=== PATIENT | male | born 1980 | race Caucasian/White ===

== ENCOUNTER 2020-08-10 15:50 | Emergency (ER) | payer BC, OTHER ==
[~2020-08-10] VITALS: Ht 180.3 cm; Wt 93.1 kg
[2020-08-10] MEDS ORDERED: IV NORMAL SALINE 1,000ML 1,000 ML IV ONE (16:00)
[2020-08-10] MEDS ORDERED: ONDANSETRON PF 4 MG/2 ML VIAL. IVP ONE (16:00)
[2020-08-10] MEDS ORDERED: KETOROLAC 15 MG/ML VIAL. IVP ONE (16:00)
[2020-08-10 16:24] LABS: BASO # 0.1 x10^3/uL (0.0-0.2); BASO % 1 % (0-3); EOS # 0.4 x10^3/uL (0.0-0.7); EOS % 6 % (0-3); HEMATOCRIT 43.5 % (39.0-53.0); HEMOGLOBIN 14.6 g/dL (13.0-17.5); LYMPH # 2.5 x10^3/uL (1.0-4.8); LYMPH % 36 % (24-48); MEAN CORPUSCULAR HEMOGLOBIN 29 pg (25-35); MEAN CORPUSCULAR HGB CONC 34 g/dL (31-37); MEAN CORPUSCULAR VOLUME 86 fL (79-100); MONO # 0.5 x10^3/uL (0.0-1.1); MONO % 7 % (0-9); NEUT # 3.6 x10^3uL (1.8-7.7); NEUT % 51 % (31-73); PLATELET COUNT 196 x10^3/uL (140-400); RED BLOOD COUNT 5.03 x10^6/uL (4.30-5.70); RED CELL DISTRIBUTION WIDTH 13.1 % (11.5-14.5); WHITE BLOOD COUNT 7.1 x10^3/uL (4.0-11.0)
[2020-08-10 16:39] LABS: CALCIUM 8.5 mg/dL (8.5-10.1); CREATININE 0.9 mg/dL (0.7-1.3); POTASSIUM 3.8 mmol/L (3.5-5.1)
[2020-08-10 16:45] LABS: ALBUMIN 3.6 g/dL (3.4-5.0); ALBUMIN/GLOBULIN RATIO 1.2 (1.0-1.7); TOTAL BILIRUBIN 0.2 mg/dL (0.2-1.0); TOTAL PROTEIN 6.7 g/dL (6.4-8.2)
--- NOTE | 2020-08-10 16:47 | RAD ---
EXAM: Chest, single view. HISTORY: Pain. COMPARISON: None. FINDINGS: A frontal view of the chest is obtained. There is no infiltrate, pleural effusion or pneumo thorax. The heart is normal in size. IMPRESSION: No acute pulmonary finding. Electronically signed by: Lisa Barrera MD (08/10/2020 4:44 PM) [id number]
--- NOTE | 2020-08-10 16:59 | EKG ---
[address] [address] Test Date: 2020-08-10 Test Time: 16:13:26 Pat Name: ALEXANDREA RABAGO Department: Room: Gender: M Bakery Technician: HODAN : 1980 Requested By: MELIA HERNANDEZ Order Number: [id number] Reading MD: Measurements Intervals [place] Rate: 51 P: 0 AK: 128 QRS: -8 QRSD: 94 T: 1 QT: 444 QTc: 411 Interpretive Statements SINUS RHYTHM LEFTWARD AXIS OTHERWISE NORMAL ECG RI6.02 No previous ECG available for comparison
--- NOTE | 2020-08-10 17:02 | PHYS DOC ---
Past History Past Medical History: No Pertinent History (MELIA HERNANDEZ APRN) Alcohol Use: Occasionally (MELIA HERNANDEZ APRN) General Adult EDM: Chief Complaint: ABDOMINAL PAIN HPI: HPI: Patient is a 39-year-old male who presents with right lower abdominal pain that radiates to right flank. Patient states that the pain started about an hour ago. Patient denies nausea, vomiting, diarrhea, fever. Patient denies any recent illness. Patient denies taking anything at home for the pain. Patient denies health history. (MELIA HERNANDEZ APRN) Review of Systems: Review of Systems: Constitutional: Denies fever or chills Eyes: Denies change in visual acuity HENT: Denies nasal congestion or sore throat Respiratory: Denies cough or shortness of breath Cardiovascular: Denies chest pain or edema GI: Reports right-sided lower abdominal pain, denies nausea, vomiting, bloody stools or diarrhea : Denies dysuria Musculoskeletal: Denies back pain or joint pain Integument: Denies rash Neurologic: Denies headache, focal weakness or sensory changes Endocrine: Denies polyuria or polydipsia Lymphatic: Denies swollen glands Psychiatric: Denies depression or anxiety (MELIA HERNANDEZ APRN) Current Medications: Current Meds: Current Medications Medications (Trade) Dose Ordered Sig/Vita Start Time Stop Time Status Last Admin Dose Admin Ketorolac Tromethamine (Toradol 15mg Vial) 15 mg 1X ONCE 08/10/20 16:00 08/10/20 16:32 DC 08/10/20 16:28 15 MG Ondansetron HCl (Zofran) 4 mg 1X ONCE 08/10/20 16:00 08/10/20 16:32 DC 08/10/20 16:26 4 MG Sodium Chloride 1,000 ml @ 1,000 mls/hr 1X ONCE 08/10/20 16:00 08/10/20 16:59 DC 08/10/20 16:00 1,000 MLS/HR (MELIA HERNANDEZ APRN) Allergies: Allergies: Allergies Coded Allergies Type Severity Reaction Last Updated Verified No Known Drug Allergies 08/10/20 No (MELIA HERNANDEZ APRN) Physical Exam: PE: Constitutional: Well developed, well nourished, no acute distress, non-toxic appearance. [] HENT: Normocephalic, atraumatic, bilateral external ears normal, oropharynx moist, no oral exudates, nose normal. [] Eyes: PERRLA, EOMI, conjunctiva normal, no discharge. [] Neck: Normal range of motion, no tenderness, supple, no stridor. [] Cardiovascular:Heart rate regular rhythm, no murmur [] Lungs & Thorax: Bilateral breath sounds clear to auscultation [] Abdomen: Bowel sounds normal, soft, tenderness right lower abdomen Skin: Warm, dry, no erythema, no rash. [] Back: No tenderness, right sided CVA tenderness. [] Extremities: No tenderness, no cyanosis, no clubbing, ROM intact, no edema. [] Neurologic: Alert and oriented X 3, normal motor function, normal sensory function, no focal deficits noted. [] Psychologic: Affect normal, judgement normal, mood normal. [] (MELIA HERNANDEZ APRN) Current Patient Data: Labs: Laboratory Tests Test 08/10/20 16:10 White Blood Count 7.1 x10^3/uL (4.0-11.0) Red Blood Count 5.03 x10^6/uL (4.30-5.70) Hemoglobin 14.6 g/dL (13.0-17.5) Hematocrit 43.5 % (39.0-53.0) Mean Corpuscular Volume 86 fL (79-100) Mean Corpuscular Hemoglobin 29 pg (25-35) Mean Corpuscular Hemoglobin Concent 34 g/dL (31-37) Red Cell Distribution Width 13.1 % (11.5-14.5) Platelet Count 196 x10^3/uL (140-400) Neutrophils (%) (Auto) 51 % (31-73) Lymphocytes (%) (Auto) 36 % (24-48) Monocytes (%) (Auto) 7 % (0-9) Eosinophils (%) (Auto) 6 % (0-3) H Basophils (%) (Auto) 1 % (0-3) Neutrophils # (Auto) 3.6 x10^3uL (1.8-7.7) Lymphocytes # (Auto) 2.5 x10^3/uL (1.0-4.8) Monocytes # (Auto) 0.5 x10^3/uL (0.0-1.1) Eosinophils # (Auto) 0.4 x10^3/uL (0.0-0.7) Basophils # (Auto) 0.1 x10^3/uL (0.0-0.2) Sodium Level 142 mmol/L (136-145) Potassium Level 3.8 mmol/L (3.5-5.1) Chloride Level 108 mmol/L (98-107) H Carbon Dioxide Level 29 mmol/L (21-32) Anion Gap 5 (6-14) L Blood Urea Nitrogen 12 mg/dL (8-26) Creatinine 0.9 mg/dL (0.7-1.3) Estimated GFR (Cockcroft-Gault) 93.0 BUN/Creatinine Ratio 13 (6-20) Glucose Level 140 mg/dL (70-99) H Calcium Level 8.5 mg/dL (8.5-10.1) Total Bilirubin 0.2 mg/dL (0.2-1.0) Aspartate Amino Transferase (AST) 12 U/L (15-37) L Alanine Aminotransferase (ALT) 20 U/L (16-63) Alkaline Phosphatase 49 U/L (46-116) Total Protein 6.7 g/dL (6.4-8.2) Albumin 3.6 g/dL (3.4-5.0) Albumin/Globulin Ratio 1.2 (1.0-1.7) Vital Signs: Vital Signs Date Time Temp Pulse Resp B/P (MAP) Pulse Ox O2 Delivery O2 Flow Rate FiO2 08/10/20 15:57 98.6 57 14 133/74 (93) 99 Room Air (MELIA HERNANDEZ APRN) EKG: EKG: [] (MELIA HERNANDEZ APRN) Radiology/Procedures: Radiology/Procedures: []XAM: Chest, single view. HISTORY: Pain. COMPARISON: None. FINDINGS: A frontal view of the chest is obtained. There is no infiltrate, pleural effusion or pneumothorax. The heart is normal in size. IMPRESSION: No acute pulmonary finding. Electronically signed by: Lisa Barrera MD (08/10/2020 4:44 PM) [email or web address] EXAM: CT Abdomen and Pelvis without IV contrast CLINICAL HISTORY: Reason: abdominal/flank pain / Spl. Instructions: / History: . COMPARISON: none TECHNIQUE: Helical CT of the abdomen and pelvis without intravenous contrast. Axial, coronal and sagittal reformatted images were generated. PQRS compliance statement - One or more of the following individualized dose reduction techniques were utilized for this study: 1. Automated exposure control 2. Adjustment of the mA and/or kV according to patient size 3. Use of iterative reconstruction technique FINDINGS: Lack of intravenous contrast limits evaluation of solid organs, vasculature, and lymph nodes. Lower chest: Lung bases are clear. Abdomen and Pelvis: No focal liver lesion. Gallbladder is normal. No biliary dilatation. Pancreas is unremarkable. Spleen is normal in appearance. Adrenal glands are unremarkable. 4 mm calculus is seen within the proximal right ureter resulting in moderate right hydronephrosis and proximal right hydroureter. No left renal calculus. No left hydronephrosis or hydroureter. Bladder is partially distended, grossly unremarkable. Moderate colonic stool content is seen. Appendix is normal. No small or large bowel dilatation. No bowel obstruction. Small fat-containing periumbilical hernia is seen. No abdominal or pelvic ascites. No abdominal or pelvic lymphadenopathy. Bones: Degenerative changes of the spine are seen. No aggressive osseous lesion is seen. IMPRESSION: 4 mm calculus within the proximal right ureter results in moderate right hydr onephrosis and proximal right hydroureter. Electronically signed by: Javier Russ MD (08/10/2020 5:08 PM) [place] (MELIA HERNANDEZ APRN) Heart Score: Risk Factors: Risk Factors: DM, Current or recent (<one month) smoker, HTN, HLP, family history of CAD, obesity. Risk Scores: Score 0 - 3: 2.5% MACE over next 6 weeks - Discharge Home Score 4 - 6: 20.3% MACE over next 6 weeks - Admit for Clinical Observation Score 7 - 10: 72.7% MACE over next 6 weeks - Early Invasive Strategies (MELIA HERNANDEZ APRN) Course & Med Decision Making: Course & Med Decision Making Pertinent Labs and Imaging studies reviewed. (See chart for details) Patient is a 39-year-old male who presents with right lower abdominal pain that radiates to right flank. Patient states that the pain started about an hour ago. Patient denies nausea, vomiting, diarrhea, fever. Patient denies any recent illness. Patient denies taking anything at home for the pain. Patient denies health history. CT abdomen and pelvis ordered, UA rule out kidney stone. Toradol given for pain and Zofran for nausea. Chest x-ray shows no acute pulmonary finding.CT shows 4 mm calculus within the proximal right ureter results in moderate right hydronephrosis and proximal right hydroureter. Flomax ordered. Patient pain 5/10. Hydrocodone given. Patient 50 BPM, creatine with in normal limits, negative white count, pain controlled, no fever in ED. UA positive for large blood. Sending patient home with strainer, hydrocodone, flomax. Ibuprofen and tylenol. Follow up with PCP. 1.Nephrolitiasis 2. appendicitis 3. cholecystitis (MELIA HERNANDEZ APRN) Course & Med Decision Making Did not see patient, however discussed patient with OFFICE ASSISTANT RECEPTIONIST and agreed with her plan and disposition. (SARAY BARBA MD) Dragon Disclaimer: Dragon Disclaimer: This electronic medical record was generated, in whole or in part, using a voice recognition dictation system. (MELIA HERNANDEZ APRN) Departure Departure: Impression: Primary Impression: Kidney stone Disposition: 01 DC HOME SELF CARE/HOMELESS Condition: IMPROVED Referrals: STEPHEN RODRIGUEZ MD (PCP) Patient Instructions: Diet for Kidney Stones Additional Instructions: For lower right-sided abdominal pain and flank pain. Your CT of your abdomen showed 4 mm calculus within the proximal right ureter. You will need to increase your fluids at home. I will prescribe you Flomax to take at home along with pain medication. Please return to the ED with worsening symptoms or concerns. EMERGENCY DEPARTMENT GENERAL DISCHARGE INSTRUCTIONS Thank you for coming to [facility] (ED) today and trusting us with you care. We trust that you had a positivie experience in our Emergency Department. If you wish to speak to the department management, you may call the director at [phone]. YOUR FOLLOW UP INSTRUCTIONS ARE FOLLOWS: 1. Do you have a private Doctor? If you do not have a private doctor, please ask for a resource list of physicians or clinics that may be able to assist you with follow up care. 2. The Emergency Physician has interpreted your x-rays. The X-Ray specialist will also review them. If there is a change in the findings, you will be notified in 48 hours when at all possible. 3. A lab test or culture has been done, your results will be reviewed and you will be notified if you need a change in treatment. ADDITIONAL INSTRUCTIONS AND INFORMATION: 1. Your care today has been supervised by a physician who is specially trained in emergency care. Many problems require more than one evaluation for a complete diagnosis and treatment. We recommend that you schedule your follow up appointment as recommended to ensure complete treatment of you illness or injury. If you are unable to obtain follow up care and continue to have a problem, or if your condition worsens, we recommend that you return to the ED. 2. We are not able to safely determine your condition over the phone nor are we able to give sound medical advice over the phone. For these safety reasons, if you call for medical advice we will ask you to come to the ED for further evaluation. 3. If you have any questions regarding these discharge instructions please call the ED at [phone]. SAFETY INFORMATION: In the interest of safety, wellness, and injury prevention; we encourage you to wear your sealbelt, if you smoke; quite smoking, and we encourage family to use a protective helmet for bicycling and other sporting events that present an increased risk for head injury. IF YOUR SYMPTOMS WORSEN OR NEW SYMPTOMS DEVELOP, OR YOU HAVE CONCERNS ABOUT YOUR CONDITION; OR IF YOUR CONDITION WORSENS WHILE YOU ARE WAITING FOR YOUR FOLLOW UP APPOINTMENT; EITHER CONTACT YOUR PRIMARY CARE DOCTOR, THE PHYSICIAN WHOSE NAME AND NUMBER YOU WERE GIVEN, OR RETURN TO THE ED IMMEDIATELY. Scripts Tamsulosin Hcl (FLOMAX) 0.4 Mg Cap.er.24h 1 CAP PO DAILY for kidney stone for 14 Days, #14 CAP 0 Refills Prov: MARYMELIA CASH TELLER 08/10/20 Hydrocodone Bit/Acetaminophen (HYDROCODONE-APAP 5-325 ) 1 Each Tablet 1 TAB PO PRN Q6HRS PRN for PAIN for 3 Days, #12 TAB 0 Refills Prov: MELIA HERNANDEZ APRN 08/10/20 MELIA HERNANDEZ APRN Aug 10, 2020 17:02 SARAY BARBA MD Aug 10, 2020 22:59
--- NOTE | 2020-08-10 17:10 | RAD ---
EXAM: CT Abdomen and Pelvis without IV contrast CLINICAL HISTORY: Reason: abdominal/flank pain / Spl. Instructions: / History: . COMPARISON: none TECHNIQUE: Helical CT of the abdomen and pelvis without intravenous contrast. Axial, coronal and sagi ttal reformatted images were generated. PQRS compliance statement - One or more of the following individualized dose reduction techniques wer e utilized for this study: 1. Automated exposure control 2. Adjustment of the mA and/or kV according to patient size 3. Use of iterative reconstruction technique FINDINGS: Lack of intravenous contrast limits evaluation of solid organs, vasculature, and lymph nodes. Lower chest: Lung bases are clear. Abdomen and Pelvis: No focal liver lesion. Gallbladder is normal. No biliary dilatation. Pancreas is unremarkable. Spleen is normal in appearance. Adrenal glands are unremarkable. 4 mm calculus is seen within the proximal right ureter resulting in moderate right hydronephrosis and proximal right hydroureter. No left renal calculus. No left hydronephrosis or hydroureter. Bladder i s partially distended, grossly unremarkable. Moderate colonic stool content is seen. Appendix is normal. No small or large bowel dilatation. No dhruv wel obstruction. Small fat-containing periumbilical hernia is seen. No abdominal or pelvic ascites. No abdominal or pe lvic lymphadenopathy. Bones: Degenerative changes of the spine are seen. No aggressive osseous lesion is seen. IMPRESSION: 4 mm calculus within the proximal right ureter results in moderate right hydronephrosis and proximal right hydroureter. Electronically signed by: Javier Russ MD (08/10/2020 5:08 PM) [facility]
[2020-08-10] MEDS ORDERED: TAMSULOSIN 0.4 MG CAP.ER.24H. PO ONE (18:00)
[2020-08-10] MEDS ORDERED: HYDROcodone/APAP 5/325MG 1 TAB TABLET PO ONE (18:45)
[2020-08-10] MEDS ORDERED: HYDR-2155 PO (18:55)
[2020-08-10] MEDS ORDERED: TAMS0.4C97 PO (18:55)
[2020-08-10 19:15] LABS: BACTERIA,URINE 0 /HPF (0-FEW); BILIRUBIN,URINE NEG (NEG); CLARITY,URINE CLEAR; COLOR,URINE YELLOW; GLUCOSE,URINE NEG (NEG); NITRITE,URINE NEG (NEG); SQUAMOUS EPITHELIAL CELL,UR OCC /LPF; UROBILINOGEN,URINE 0.2 mg/dL (0.2 mg/dL); WBC,URINE OCC /HPF (0-4)
[2020-08-10 19:27] VITALS: BP 118/66
== END 2020-08-10 19:30 | disposition home or self-care (01) ==
LOC: ER 15:50
DX: N13.2 Hydronephrosis with renal and ureteral calculous obstruction (principal); K37 Unspecified appendicitis; K81.9 Cholecystitis, unspecified
CPT/HCPCS: 36415; 71045; 74176; 80053; 81001; 85025; 93005; 96361; 96374; 96375; 99285; J1885; J2405; J7030

== ENCOUNTER → 2020-11-21 | Outpatient (CLI) | payer OTHER ==
[~2020-11-21] MED LIST: HYDR-2155 PO; TAMS0.4C97 PO
--- NOTE | 2020-11-21 15:42 | RAD ---
EXAM: Right lower extremity venous Doppler sonogram. HISTORY: Pain and swelling. TECHNIQUE: Tavera scale and color Doppler sonographic evaluation of the right lower extremity veins wit h spectral waveform analysis was performed. FINDINGS: There is normal color flow, normal compressibility and there are normal spectral waveforms in the common femoral, superficial femoral, popliteal, posterior tibial and greater saphenous veins. There is soft tissue edema within the medial right calf. IMPRESSION: No Doppler evidence of lower extremity deep venous thrombosis. Electronically signed by: Lisa Barrera MD (11/21/2020 3:40 PM) [facility]
== END ==
LOC: US 14:27
PROVIDERS: ATTEND Family Medicine
DX: L03.115 Cellulitis of right lower limb (principal); R22.41 Localized swelling, mass and lump, right lower limb
CPT/HCPCS: 93971

== ENCOUNTER → 2021-10-04 | Outpatient (CLI) | payer OTHER ==
--- NOTE | 2021-10-04 14:53 | RAD ---
3 views of each knee 10/04/2021 10/04/2021 1:54 PM Indication: Knee pain Comparison: None Findings: There is no acute fracture or dislocation. Articular surfaces are uninterupted and smooth. Soft tissues are unremarkable. Small superior patellar osteophyte noted on the right. Impression: No evidence of acute osseous abnormality. Electronically signed by: Víctor Tom MD (10/04/2021 2:51 PM) [id number]
== END ==
LOC: RAD 13:38
PROVIDERS: ATTEND Orthopaedic Surgery Sports Medicine
DX: M25.761 Osteophyte, right knee (principal); M25.562 Pain in left knee
CPT/HCPCS: 73565; 73560-50